=== PATIENT | male | born 1980 | race Caucasian/White ===

== ENCOUNTER 2018-07-23 08:06 | Emergency (ER) | payer OTHER ==
[~2018-07-23] VITALS: Ht 182.9 cm; Wt 96.2 kg
[~2018-07-23 08:06] MED LIST: ACETAMINOPHEN-1 EAC1 PO; AMOXICILLIN 50500 MG PO; EFFEXOR 5050 MG/1 T1 PO; FLEXERIL PO; HYDROCODONE-AP1 EAC6 PO; IBUPROFEN 800800 M1 PO; LITHIUM CARBON150 MG PO; NAPROSYN500 MG PO; NORCO 5-325 TA1 EAC1 PO; NORCO 5-325 TA1 EACH PO; NORFLEX100 MG PO; ROBAXIN500 MG PO; ULTRAM 50MG TAB50 MG PO
[2018-07-23 08:14] VITALS: BP 146/89
[2018-07-23] MEDS ORDERED: IBUPROFEN 200200 M1 PO (08:15)
[2018-07-23] MEDS ORDERED: HYDROCODONE-AP1 EAC6 PO (08:46)
== END 2018-07-23 08:58 | disposition home or self-care (01) ==
LOC: M.ERS 08:06
DX: M25.562 Pain in left knee (principal); W19.XXXA Unspecified fall, initial encounter; Y93.89 Activity, other specified; Y92.89 Other specified places as the place of occurrence of the external cause; Y99.8 Other external cause status

== ENCOUNTER 2018-08-10 09:41 | Emergency (ER) | payer OTHER ==
[~2018-08-10] VITALS: Ht 182.9 cm; Wt 99.8 kg
[~2018-08-10 09:41] MED LIST changes: +IBUPROFEN 200200 M1 PO
[2018-08-10 09:49] VITALS: BP 150/105
[2018-08-10] MEDS ORDERED: ACETAMINOPHEN-1 EAC1 PO (10:15)
[2018-08-10] MEDS ORDERED: KEFLEX500 M1 PO (10:15)
== END 2018-08-10 10:22 | disposition home or self-care (01) ==
LOC: M.ERS 09:41
DX: S61.211A Laceration without foreign body of left index finger without damage to nail, initial encounter (principal); S61.213A Laceration without foreign body of left middle finger without damage to nail, initial encounter; F17.220 Nicotine dependence, chewing tobacco, uncomplicated; G89.29 Other chronic pain; M25.562 Pain in left knee; F32.9 Major depressive disorder, single episode, unspecified; Z88.8 Allergy status to other drugs, medicaments and biological substances; Z88.6 Allergy status to analgesic agent; W27.8XXA Contact with other nonpowered hand tool, initial encounter; Y92.89 Other specified places as the place of occurrence of the external cause; Y93.89 Activity, other specified; Y99.8 Other external cause status

== ENCOUNTER 2021-05-13 08:48 | Emergency (ER) | payer OTHER ==
[~2021-05-13] VITALS: Ht 180.3 cm; Wt 104.3 kg
[~2021-05-13 08:48] MED LIST changes: +KEFLEX500 M1 PO
[2021-05-13] MEDS ORDERED: LITHIUM CARBON600 MG PO (09:02)
[2021-05-13] MEDS ORDERED: ANTIDEPRESSANT (09:02)
[2021-05-13] MEDS ORDERED: HYDROCODON-ACE1 EAC7 PO (09:54)
[2021-05-13] MEDS ORDERED: FLEXERIL PO (09:54)
[2021-05-13] MEDS ORDERED: CEPHALEXIN500 MG PO (09:56)
[2021-05-13 10:08] VITALS: BP 149/103
== END 2021-05-13 10:10 | disposition home or self-care (01) ==
LOC: M.ERS 08:48
DX: S16.1XXA Strain of muscle, fascia and tendon at neck level, initial encounter (principal); S80.12XA Contusion of left lower leg, initial encounter; F32.9 Major depressive disorder, single episode, unspecified; F17.220 Nicotine dependence, chewing tobacco, uncomplicated; Z79.899 Other long term (current) drug therapy; Z88.6 Allergy status to analgesic agent; Z88.8 Allergy status to other drugs, medicaments and biological substances; V47.5XXA Car driver injured in collision with fixed or stationary object in traffic accident, initial encounter; Y93.89 Activity, other specified; Y92.89 Other specified places as the place of occurrence of the external cause; Y99.8 Other external cause status

== ENCOUNTER 2021-05-14 16:16 | Emergency (ER) | payer OTHER ==
[~2021-05-14] VITALS: Ht 180.3 cm; Wt 104.3 kg
[~2021-05-14 16:16] MED LIST changes: +ANTIDEPRESSANT; +CEPHALEXIN500 MG PO; +HYDROCODON-ACE1 EAC7 PO; +LITHIUM CARBON600 MG PO
[2021-05-14 18:00] VITALS: BP 134/87
== END 2021-05-14 18:01 | disposition home or self-care (01) ==
LOC: M.ERS 16:16
DX: S93.401A Sprain of unspecified ligament of right ankle, initial encounter (principal); F32.9 Major depressive disorder, single episode, unspecified; Z79.891 Long term (current) use of opiate analgesic; Z79.899 Other long term (current) drug therapy; Z88.6 Allergy status to analgesic agent; Z88.8 Allergy status to other drugs, medicaments and biological substances; Z72.0 Tobacco use; V89.2XXA Person injured in unspecified motor-vehicle accident, traffic, initial encounter; Y93.89 Activity, other specified; Y92.89 Other specified places as the place of occurrence of the external cause; Y99.8 Other external cause status

== ENCOUNTER 2021-07-26 09:04 | Emergency (ER) | payer OTHER ==
[~2021-07-26] VITALS: Ht 182.9 cm; Wt 99.8 kg
[2021-07-26 09:25] VITALS: BP 150/92
[2021-07-26] MEDS ORDERED: MOBIC7.5 MG PO (10:10)
[2021-07-26] MEDS ORDERED: FLEXERIL PO (10:28)
== END 2021-07-26 10:29 | disposition home or self-care (01) ==
LOC: M.ERS 09:04
DX: M54.2 Cervicalgia (principal); F32.9 Major depressive disorder, single episode, unspecified; Z79.899 Other long term (current) drug therapy; Z88.5 Allergy status to narcotic agent; Z88.6 Allergy status to analgesic agent